=== PATIENT | male | born 1990 ===

== ENCOUNTER 2017-01-27 08:23 | Emergency (ER) | payer SELFPAY ==
[2017-01-27 08:30] VITALS: BMI 28.0
[2017-01-27 08:32] VITALS: BP 140/92; PULSE 91; RESP 16; TEMP 97.8; O2SAT 98
--- NOTE | 2017-01-27 09:00 | C.PDOC ---
<Rere Davis - Last Filed: 01/27/17 08:59> <Ilya Page P - Last Filed: 01/27/17 09:15> Time Seen by Provider: 01/27/17 08:26 Chief Complaint (Nursing): Substance Abuse Past Medical History Surgical History: Appendectomy - Social History Hx Alcohol Use: No Hx Substance Use: Yes - Immunization History Hx Tetanus Toxoid Vaccination: No Hx Influenza Vaccination: No Hx Pneumococcal Vaccination: No <Rere Davis - Last Filed: 01/27/17 08:59> Reviewed: Historical Data, Nursing Documentation, Vital Signs <Ilya Page P - Last Filed: 01/27/17 09:15> Vital Signs: Last Vital Signs Temp 97.8 F 01/27/17 08:30 Pulse 91 H 01/27/17 08:30 Resp 16 01/27/17 08:30 BP 140/92 H 01/27/17 08:30 Pulse Ox 98 01/27/17 09:00 ED Course And Treatment O2 Sat by Pulse Oximetry: 98 <Rere Davis - Last Filed: 01/27/17 08:59> Progress Note: Case was discussed w/ combination worker, who states that there are no detox beds available. Patient made aware; Pt will be discharged w/ a list of detox programs, and information for the detox co-ordinator/instructions for pre- screening process. Patient is agreeable with plan. All questions answered. <Ilya Page P - Last Filed: 01/27/17 09:15> Disposition Counseled Patient/Family Regarding: Need For Followup - Disposition Disposition Time: 09:00 - POA Present On Arrival: None <Rere Davis - Last Filed: 01/27/17 08:59> <Ilya Page P - Last Filed: 01/27/17 09:15> - [facility] [[facility]] [facility] [Outside] Alcoholics Anonymous [Outside] Disposition: HOME/ ROUTINE Condition: STABLE Additional Instructions: Follow up with outpatient services provided by crisis department Instructions: Polysubstance Abuse (ED) - Clinical Impression Clinical Impression: Drug dependence, Drug abuse <Rere Davis - Last Filed: 01/27/17 08:59> - Scribe Statement The provider has reviewed the documentation as recorded by the Scribe <Ilya Page - Last Filed: 01/27/17 09:15> - Scribe Statement Herlinda Gunter All medical record entries made by the Scribe were at my direction and personally dictated by me. I have reviewed the chart and agree that the record accurately reflects my personal performance of the history, physical exam, medical decision making, and the department course for this patient. I have also personally directed, reviewed, and agree with the discharge instructions and disposition. (Ilya Page)
--- NOTE | 2017-01-27 09:22 | C.PDOC ---
History Of Present Illness 26-year-old male, PMHx includes Substance Abuse, presents to the emergency department requesting detox from Cocaine. patients last use was at 09:00 this morning. He denies nausea/vomiting, chest pain or shortness of breath Time Seen by Provider: 01/27/17 08:26 Chief Complaint (Nursing): Substance Abuse History Per: Patient History/Exam Limitations: no limitations Past Medical History Reviewed: Historical Data, Nursing Documentation, Vital Signs Vital Signs: Last Vital Signs Temp 97.8 F 01/27/17 08:30 Pulse 91 H 01/27/17 08:30 Resp 16 01/27/17 08:30 BP 140/92 H 01/27/17 08:30 Pulse Ox 98 01/27/17 09:23 Surgical History: Appendectomy Family History: States: No Known Family Hx - Social History Hx Alcohol Use: No Hx Substance Use: Yes - Immunization History Hx Tetanus Toxoid Vaccination: No Hx Influenza Vaccination: No Hx Pneumococcal Vaccination: No Review Of Systems Except As Marked, All Systems Reviewed And Found Negative. Constitutional: Negative for: Fever Cardiovascular: Negative for: Chest Pain, Palpitations Respiratory: Negative for: Shortness of Breath Gastrointestinal: Negative for: Vomiting Physical Exam - Physical Exam Appears: Non-toxic, No Acute Distress Eye(s): bilateral: Normal Inspection Nose: Normal Oral Mucosa: Moist Neck: Normal ROM Respiratory: No Accessory Muscle Use Extremity: Normal ROM Neurological/Psych: Oriented x3 ED Course And Treatment O2 Sat by Pulse Oximetry: 98 Progress Note: Case was discussed w/ custodial maintenance worker, who states that there are no detox beds available. Patient made aware; Pt will be discharged w/ a list of detox programs, and information for the detox co-ordinator/instructions for pre- screening process. Patient is agreeable with plan. All questions answered. Reassessment Condition: Unchanged Disposition Counseled Patient/Family Regarding: Need For Followup - Disposition Referrals: Alcoholics Anonymous [Outside] [facility] [Outside] [email or web address] [Outside] Disposition: HOME/ ROUTINE Disposition Time: 09:20 Condition: STABLE Additional Instructions: Follow up with outpatient services provided by crisis department Instructions: Polysubstance Abuse (ED) - POA Present On Arrival: None - Clinical Impression Clinical Impression: Drug dependence, Drug abuse - Scribe Statement The provider has reviewed the documentation as recorded by the Scribe Herlinda Cheema All medical record entries made by the Brenda were at my direction and personally dictated by me. I have reviewed the chart and agree that the record accurately reflects my personal performance of the history, physical exam, medical decision making, and the department course for this patient. I have also personally directed, reviewed, and agree with the discharge instructions and disposition.
== END 2017-01-27 09:26 | disposition home or self-care (01) ==
LOC: C.ER 08:23
DX: F14.10 Cocaine abuse, uncomplicated (principal); F14.20 Cocaine dependence, uncomplicated